=== PATIENT | female | born 1990 | race Two or more races ===

== ENCOUNTER 2016-08-11 13:37 | Inpatient (IN) | payer BC ==
[~2016-08-11] VITALS: Ht 152.4 cm; Wt 61.7 kg
[2016-08-11 13:58] LABS: BASOPHILS % (AUTO) 0.8 % (0.0-2.0); EOSINOPHILS % (AUTO) 3.8 % (1.0-6.0); HEMATOCRIT 43.5 % (36-46); HEMOGLOBIN 14.4 g/dL (12.0-16.0); LYMPHOCYTES # (AUTO) 1.6 K/uL (1.0-4.8); LYMPHOCYTES % (AUTO) 29.8 % (22.0-44.0); MEAN CORPUSCULAR HEMOGLOBIN 30.5 pg (26.0-34.0); MEAN CORPUSCULAR HGB CONC 33.1 G/dL (31.0-37.0); MEAN CORPUSCULAR VOLUME 92 fL (80-100); MONOCYTES # (AUTO) 0.3 K/uL (0.1-1.0); MONOCYTES % (AUTO) 5.5 % (2.0-9.0); NEUTROPHILS # (AUTO) 3.3 K/uL (1.8-7.7); NEUTROPHILS % (AUTO) 60.1 % (40.0-70.0); PLATELET COUNT (AUTO) 228 K/uL (150-450); RED BLOOD CELL COUNT(AUTO) 4.73 MIL/uL (4.00-5.20); RED CELL DISTRIBUTION WIDTH 14.6 % (11.5-14.5); WHITE BLOOD COUNT (AUTO) 5.4 K/uL (4.5-11.0)
[2016-08-11] MEDS ORDERED: SERT50TA12 PO (14:04)
[2016-08-11] MEDS ORDERED: ALPR0.5T8 PO (14:04)
[2016-08-11 14:10] LABS: ANION GAP 10 mmol/L (8-16); CALCIUM, TOTAL 8.8 mg/dL (8.8-10.5); CARBON DIOXIDE 26 mmol/L (22-29); CHLORIDE 106 mmol/L (98-107); CREATININE 0.82 mg/dL (0.60-1.30); GLOMERULAR FILTR. RATE CALC > 60 mL/min (>60); POTASSIUM 3.5 mmol/L (3.5-5.1); SODIUM SERUM 142 mmol/L (136-145); UREA NITROGEN, BLOOD 10 mg/dL (7-18)
[2016-08-11 14:16] LABS: ALANINE AMINOTRANSFERASE 17 U/L (12-78); ALBUMIN 3.7 g/dL (3.4-5.0); ASPARTATE AMINOTRANSFERASE 13 U/L (15-37); BILIRUBIN,TOTAL 0.3 mg/dL (0.1-1.0); TOTAL PROTEIN, SERUM 7.4 g/dL (6.4-8.2)
[2016-08-11 14:47] LABS: SALICYLATE < 2.8 mg/dL (2.8-20.0)
[2016-08-11 15:02] LABS: ACETAMINOPHEN < 2 mcg/mL (10-30)
[2016-08-11] MEDS ORDERED: TUBERCULIN, PURIFIED PROTEIN DERIVATIVE 5 TU/0.1 ML SYG ID ONE (15:30)
[2016-08-11] MEDS ORDERED: LOPERAMIDE HCL 2 MG CAPSULE PO PRN (15:30)
[2016-08-11] MEDS ORDERED: ZOLPIDEM TARTRATE 10 MG TABLET PO PRN (15:30)
[2016-08-11] MEDS ORDERED: QUEtiapine FUMARATE 100 MG TABLET PO PRN (15:30)
[2016-08-11] MEDS ORDERED: LORazepam 2 MG TABLET PO PRN (15:30)
[2016-08-11] MEDS ORDERED: MAGNESIUM HYDROXIDE SUSPENSION 30 ML UDCUP PO PRN (15:30)
[2016-08-11] MEDS ORDERED: PROMETHAZINE HCL 25 MG TABLET PO PRN (15:30)
[2016-08-11] MEDS ORDERED: MAG HYDROX/AL HYDROX/SIMETH ES 30 ML SUSPENSION UDCUP PO PRN (15:30)
[2016-08-11] MEDS ORDERED: ACETAMINOPHEN 325 MG TABLET PO PRN ×2 (15:30→20:15)
[2016-08-11] MEDS ORDERED: GuaiFENesin/D-METHORPHAN [SUGAR-FREE] 200-20MG/10 ML SYRUP UDCUP PO PRN (15:30)
[2016-08-11] MEDS ORDERED: HydrOXYzine PAMOATE 50 MG CAPSULE PO PRN (15:30)
[2016-08-11 17:36] LABS: GLUCOSE,POINT OF CARE 100 MG/DL (70-110)
[2016-08-11 18:31] VITALS: BP 138/79
[2016-08-11] MEDS ORDERED: THIAMINE HCL 100 MG TABLET PO SCH (21:00)
[2016-08-12] MEDS ORDERED: MULTIVITAMINS WITH MINERALS, THERAPEUTIC TABLET PO SCH (09:00)
[2016-08-12] MEDS ORDERED: PRENATAL VIT#96/FERROUS FUM/FA TABLET PO SCH (09:00)
[2016-08-12] MEDS ORDERED: SERTRALINE HCL 50 MG TABLET PO SCH (09:00)
[2016-08-12 09:33] VITALS: BP 117/66
[2016-08-12] MEDS: FOLIC ACID 1 MG TABLET PO SCH (10:06)
[2016-08-12 16:33] VITALS: BP 119/76
[2016-08-12] MEDS ORDERED: PROMETHAZINE HCL 25 MG TABLET PO PRN (18:30)
[2016-08-12] MEDS ORDERED: MAGNESIUM HYDROXIDE SUSPENSION 30 ML UDCUP PO PRN (18:30)
[2016-08-12] MEDS ORDERED: GuaiFENesin/D-METHORPHAN [SUGAR-FREE] 200-20MG/10 ML SYRUP UDCUP PO PRN (18:30)
[2016-08-12] MEDS ORDERED: HydrOXYzine PAMOATE 50 MG CAPSULE PO PRN (18:30)
[2016-08-12] MEDS ORDERED: ACETAMINOPHEN 325 MG TABLET PO PRN (18:30)
[2016-08-12] MEDS ORDERED: MAG HYDROX/AL HYDROX/SIMETH ES 30 ML SUSPENSION UDCUP PO PRN (18:30)
[2016-08-12] MEDS ORDERED: ZOLPIDEM TARTRATE 10 MG TABLET PO PRN (18:30)
[2016-08-12] MEDS ORDERED: LOPERAMIDE HCL 2 MG CAPSULE PO PRN (18:30)
[2016-08-12] MEDS ORDERED: CYANOCOBALAMIN 1,000 MCG/ML VIAL IM ONE (18:30)
[2016-08-13] MEDS ORDERED: FOLIC ACID 1 MG TABLET PO SCH (09:00)
[2016-08-13 09:14] VITALS: BP 107/59
[2016-08-13] MEDS: MULTIVITAMINS WITH MINERALS, THERAPEUTIC TABLET PO SCH (10:14)
[2016-08-13] MEDS: FLUoxetine HCL 20 MG CAPSULE PO SCH (10:15)
[2016-08-13] MEDS: FOLIC ACID 1 MG TABLET PO SCH (10:15)
[2016-08-13] MEDS: THIAMINE HCL 100 MG TABLET PO SCH ×2 (10:15→16:19)
[2016-08-13] MEDS ORDERED: FLUO-191 PO (12:25)
[2016-08-13 13:02] VITALS: BP 107/61
[2016-08-13 17:09] VITALS: BP 115/86
[2016-08-14] MEDS: THIAMINE HCL 100 MG TABLET PO SCH (08:20)
[2016-08-14] MEDS: FOLIC ACID 1 MG TABLET PO SCH (08:20)
[2016-08-14] MEDS: MULTIVITAMINS WITH MINERALS, THERAPEUTIC TABLET PO SCH (08:20)
[2016-08-14] MEDS: FLUoxetine HCL 20 MG CAPSULE PO SCH (08:20)
[2016-08-14 09:10] VITALS: BP 126/86
== END 2016-08-14 12:15 | disposition home or self-care (01) | DRG 885 ==
LOC: EMS 13:41 → 3EI 17:31 → 3EX 08-13 09:34
PROVIDERS: ADMIT Psychiatry & Neurology Psychiatry; ATTEND Psychiatry & Neurology Psychiatry
DX: F33.9 Major depressive disorder, recurrent, unspecified (principal); R45.851 Suicidal ideations; T42.4X2A Poisoning by benzodiazepines, intentional self-harm, initial encounter; F12.90 Cannabis use, unspecified, uncomplicated; F41.9 Anxiety disorder, unspecified; Z79.899 Other long term (current) drug therapy; Z91.19 Patient's noncompliance with other medical treatment and regimen; Y92.89 Other specified places as the place of occurrence of the external cause
CPT/HCPCS: 82948; 82962; 99285; G0480; G0481; J3420